=== PATIENT | male | born 1945 | race Caucasian/White ===

== ENCOUNTER 2020-09-19 10:19 | Emergency (ER) | payer BC ==
[~2020-09-19 10:19] MED LIST: KEFLEX CAP 500500 MG PO
[2020-09-19 13:10] LABS: HEMOGLOBIN 11.1 gm/dl (14.0-17.5); RED BLOOD COUNT 3.59 M/UL (4.20-5.50)
[2020-09-19] MEDS ORDERED: VIBRAMYCIN 100100 MG PO (15:03)
[2020-09-19] MEDS ORDERED: LEVOFLOXACIN750 MG PO (15:03)
== END 2020-09-19 16:05 | disposition home or self-care (01) ==
LOC: ER1 10:19
PROVIDERS: Emergency Medicine
DX: L03.116 Cellulitis of left lower limb (principal); I87.8 Other specified disorders of veins; I12.9 Hypertensive chronic kidney disease with stage 1 through stage 4 chronic kidney disease, or unspecified chronic kidney disease; N18.9 Chronic kidney disease, unspecified; E11.22 Type 2 diabetes mellitus with diabetic chronic kidney disease; E11.40 Type 2 diabetes mellitus with diabetic neuropathy, unspecified; Z88.8 Allergy status to other drugs, medicaments and biological substances
CPT/HCPCS: 73590; 73630; 80053; 83605; 85025; 85652; 86140; 93970; 96365; 99284; J1956